=== PATIENT | male | born 1960 | race Caucasian/White ===

== ENCOUNTER 2019-12-05 07:30 | Observation (INO) ==
[2019-12-05] MEDS ORDERED: NITROGLYCERIN SL 0.4 MG TABLET SL PRN (07:54)
[2019-12-05] MEDS ORDERED: ASPIRIN 325 MG TABLET PO STA (07:54)
[2019-12-05 08:51] LABS: Basophils % 0.5 % (0.0-0.8); Eosinophils # 0.1 10*3/uL (0.0-0.87); Eosinophils % 1.3 % (0.00-10.9); Hematocrit 39.1 VOL% (42.0-52.0); Hemoglobin 12.8 GM/DL (14.0-18.0); Immature Granulocytes % 0.5 %; Immature Granulocytes Absolute 0.04 #; Lymphocytes # 1.8 10*3/uL (1.4-4.0); Lymphocytes % 20.9 % (21.2-54.2); Mean Corpuscular HGB Conc 32.7 GM/DL (32-36); Mean Corpuscular Volume 92.2 FL (87-102); Mean Platelet Volume 8.7 FL (9.6-12.0); Monocytes % 7.8 % (1.7-12.7); Platelet Count 309 T/CUMM (130-400); Red Blood Count 4.24 MC/CUMM (3.8-5.5); White Blood Count 8.5 T/CUMM (4-12)
[2019-12-05 09:07] LABS: Calcium 8.7 MG/DL (8.5-10.1); Osmolality,Calculated 275.7 MOS/KG (273-304)
[2019-12-05 09:08] LABS: INR 0.9; PT Patient Result 10.1 SECS (9.6-12.2)
[2019-12-05] MEDS ORDERED: ACETAMINOPHEN 325 MG TABLET PO PRN (10:32)
[2019-12-05] MEDS ORDERED: ONDANSETRON 4 MG/2 ML VIAL IV PRN (10:32)
[2019-12-05] MEDS ORDERED: DOCUSATE SODIUM 100 MG CAPSULE PO PRN (10:32)
[2019-12-05] MEDS ORDERED: LACTULOSE 20 GM/30 ML UDCUP PO PRN (10:32)
[2019-12-05] MEDS ORDERED: ALBUTEROL/IPRATROPIUM 3 ML NEB RESP TX PRN (10:38)
[2019-12-05] MEDS ORDERED: KETOROLAC 10 MG TABLET PO PRN (10:39)
[2019-12-05] MEDS ORDERED: BACLOFEN 10 MG TABLET PO PRN (10:39)
[2019-12-05] MEDS ORDERED: traZODone 50 MG TABLET PO PRN (10:39)
[2019-12-05 11:04] LABS: Risk Ratio 2.9; Thyroid Stimulating Hormone 1.31 uIU/ml (0.358-3.74); VLDL CHOLESTEROL 47.8 MG/DL
[2019-12-05 11:29] LABS: Apearance,Urine CLEAR (Clear); Bilirubin,Urine Negative (Negative); Blood, Urine Negative (Negative); Glucose,Urine (UA) Negative (Negative); Ketones,Urine Negative (Negative); Nitrite,Urine Negative (Negative); Protein,Urine Negative; RBC,Urine 2 /HPF (0-4); Urine Color Straw (Yellow); Urine Specific Gravity 1.005 (1.001-1.035); Urine Urobilinogen < 2.0 EU/DL (0.2-1.0); WBC,Urine 1 /HPF (0-6)
[2019-12-05] MEDS: PANTOPRAZOLE 40 MG TABLET PO SCH (12:38)
[2019-12-05] MEDS: ENOXAPARIN 40 MG/0.4 ML SYRINGE SUBCUT SCH (12:38)
[2019-12-05] MEDS: ALBUTEROL/IPRATROPIUM 3 ML NEB RESP TX SCH ×3 (14:49→23:58)
[2019-12-05] MEDS ORDERED: GABAPENTIN 400 MG CAPSULE PO SCH (17:00)
[2019-12-05] MEDS ORDERED: LOSARTAN 50 MG TABLET PO SCH (17:00)
[2019-12-05] MEDS ORDERED: amLODIPine 5 MG TABLET PO SCH (17:00)
[2019-12-05] MEDS ORDERED: MELOXICAM 7.5 MG TABLET PO SCH (17:00)
[2019-12-05] MEDS: BUDESONIDE 0.5 MG/2 ML NEB RESP TX SCH (19:10)
[2019-12-05] MEDS ORDERED: MONTELUKAST 10 MG TABLET PO SCH (21:00)
[2019-12-05] MEDS: NITROGLYCERIN 2% OINT 1 INCH/GM PACK TOP SCH (21:02)
[2019-12-06] MEDS: FLUTICASONE 50 MCG NASAL SPRAY 16 GM BOTTLE BOTH NARES SCH ×2 (04:15→09:40)
[2019-12-06 05:30] LABS: Basophils % 0.6 % (0.0-0.8); Eosinophils # 0.1 10*3/uL (0.0-0.87); Eosinophils % 1.3 % (0.00-10.9); Hematocrit 39.4 VOL% (42.0-52.0); Immature Granulocytes % 0.6 %; Immature Granulocytes Absolute 0.04 #; Lymphocytes # 1.7 10*3/uL (1.4-4.0); Lymphocytes % 24.2 % (21.2-54.2); Mean Corpuscular Volume 90.2 FL (87-102); Mean Platelet Volume 8.8 FL (9.6-12.0); Monocytes % 8.6 % (1.7-12.7); Neutrophils % 64.7 % (38.7-73.9); Platelet Count 282 T/CUMM (130-400); Red Blood Count 4.37 MC/CUMM (3.8-5.5); Red Cell Distribution Width 12.7 % (9.3-17.3); White Blood Count 7.1 T/CUMM (4-12)
[2019-12-06 05:50] LABS: Calcium 8.4 MG/DL (8.5-10.1); Osmolality,Calculated 275.7 MOS/KG (273-304)
[2019-12-06] MEDS: BUDESONIDE 0.5 MG/2 ML NEB RESP TX SCH (07:42)
[2019-12-06] MEDS: ALBUTEROL/IPRATROPIUM 3 ML NEB RESP TX SCH ×2 (07:42→12:50)
[2019-12-06] MEDS ORDERED: ASPIRIN EC 81 MG TABLET PO SCH (09:00)
[2019-12-06] MEDS: NITROGLYCERIN 2% OINT 1 INCH/GM PACK TOP SCH (09:41)
[2019-12-06] MEDS: PANTOPRAZOLE 40 MG TABLET PO SCH (09:43)
[2019-12-06] MEDS ORDERED: KETOROLAC 30 MG/1 ML VIAL IV ONE (09:45)
[2019-12-06 11:09] VITALS: BP 149/79
[2019-12-06] MEDS: ENOXAPARIN 40 MG/0.4 ML SYRINGE SUBCUT SCH (12:25)
[2019-12-06] MEDS ORDERED: ATORVASTATIN 20 MG TABLET PO SCH (17:00)
== END 2019-12-06 14:34 | disposition home or self-care (01) ==
LOC: N.ED 07:30 → N.EDINP 07:30 → SUATTDRO 10:32 → N.EDINP 11:34 → N.4E 11:48
PROVIDERS: ADMIT Internal Medicine; ATTEND Internal Medicine